=== PATIENT | female | born 1970 | race Caucasian/White ===

== ENCOUNTER 2017-11-07 18:30 | Emergency (ER) | payer BC ==
[~2017-11-07] VITALS: Ht 167.6 cm; Wt 119.3 kg
[~2017-11-07 18:30] MED LIST: HYDROCODONE-AP1 EAC6 PO; IBUPROFEN 400400 M2 PO; LAMICTAL100 MG PO; NAPROSYN500 MG PO; NOHOMEMEDICATIONS; PREDNISONE 10 M10 M1 PO; PROVENTIL HFA6.7 G1 INH; PROZAC20 MG; ROBAXIN 750 MG750 M1 PO; ULTRAM 50MG TAB50 MG PO; ZPAK PO
[2017-11-07] MEDS ORDERED: LATUDA40 MG PO (18:39)
[2017-11-07 19:02] LABS: ABSOLUTE LYMPHOCYTES 1.3 thou/uL (0.8-5.3); ABSOLUTE MONOCYTES 0.3 thou/uL (0.0-1.2); ABSOLUTE NEUTROPHILS 2.2 thou/uL (1.6-8.1); BASOPHILS 0.5 %; EOSINOPHILS 0.2 %; HEMATOCRIT 37.4 % (37.0-47.0); HEMOGLOBIN 12.4 gm/dL (12.0-15.0); LYMPHOCYTES 34.4 %; MCH 27.2 pg (26.0-34.0); MCHC 33.2 g/dL (28.0-37.0); MCV 81.8 fL (80.0-100.0); MONOCYTES 7.3 %; MPV 8.9 fl. (7.2-11.1); NUCLEATED RBCS 0 /100WBC; PLATELET COUNT* 193 thou/uL (150-400); POLYS 57.6 %; RBC 4.57 mil/uL (4.20-5.00); RDW-CV 15.4 % (10.5-14.5); WBC 3.8 thou/uL (4.0-11.0)
[2017-11-07 19:11] LABS: ANION GAP 9 mmol/L (7-16); BUN 10 mg/dL (7-18); CALCIUM 8.3 mg/dL (8.5-10.1); CHLORIDE 103 mmol/L (98-107); CO2 25 mmol/L (21-32); GLUCOSE 330 mg/dL (70-99); POTASSIUM 3.7 mmol/L (3.5-5.1); SODIUM 137 mmol/L (136-145)
[2017-11-07 19:14] LABS: APTT 26.6 Seconds (25.0-31.3); PROTIME 9.5 Seconds (9.20-11.50)
[2017-11-07 19:14] LABS: INFLUENZA A ANTIGEN None Detected (None Detect)
[2017-11-07 19:31] LABS: ALBUMIN 3.2 g/dL (3.4-5.0); ALKALINE PHOSPHATASE 112 U/L (46-116); CK-MB MASS < 0.5 ng/mL (<0.5-3.6); LIPASE 156 U/L (73-393); MAGNESIUM 1.8 mg/dL (1.8-2.4); NT-PRO BRAIN NAT PEPTIDE 125 pg/mL (<300); SGOT 23 U/L (15-37); SGPT 33 U/L (30-65); TOTAL BILIRUBIN 0.4 mg/dL (<0.1-1.0); TOTAL PROTEIN 7.5 g/dL (6.4-8.2); TROPONIN-I LEVEL <0.06 ng/mL (<0.06)
[2017-11-07] MEDS ORDERED: PREDNISONE50 MG PO (20:15)
[2017-11-07] MEDS ORDERED: METFORMIN HCL500 MG PO (20:15)
[2017-11-07] MEDS ORDERED: TAMIFLU75 MG PO (20:16)
[2017-11-07] MEDS ORDERED: ACETAMINOPHEN-1 EAC1 PO (20:19)
[2017-11-07 21:19] VITALS: BP 139/73
--- NOTE | 2017-11-08 12:33 | EKG ---
[place] [address] ELECTROCARDIOGRAM REPORT Name: KRISTINEVANGELISTAEDSON [place] Room: [facility] [place]#: [id number] Admission: 11/07/17 Attend Phys: Discharge: 11/07/17 Date of : 68 Report #: [id number] THIS REPORT FOR: //name// [facility] ED Test Date: 2017-11-07 Test Time: 18:36:51 Pat Name: EDSON ROLDAN Department: Room: Gender: F [employer] Chief: : 1970 Requested By: Jarvis Sandoval Order Number: [id number] MD: Gomez Demarco Measurements Intervals [place] Rate: 91 P: 29 PA: 149 QRS: 22 QRSD: 101 T: 18 QT: 344 QTc: 424 Interpretive Statements Sinus rhythm No previous ECG available for comparison Electronically Signed On 11-08-2017 12:33:35 PROSTHETIC TECHNICIAN by Gomez Demarco [email or web address] <ELECTRONICALLY SIGNED> By: Gomez Demarco MD, [facility] 11/08/17 1233 1836 1836 Gomez Demarco MD, FACC /EPI
[2017-11-08 19:06] LABS: GLYCOHEMOGLOBIN (HGB A1C) 8.5 % (4.8-5.6)
== END 2017-11-07 21:20 | disposition home or self-care (01) ==
LOC: M.ERS 18:30
PROVIDERS: Emergency Medicine; Family Medicine
DX: J10.1 Influenza due to other identified influenza virus with other respiratory manifestations (principal); E11.9 Type 2 diabetes mellitus without complications; F31.9 Bipolar disorder, unspecified

== ENCOUNTER → 2018-05-13 | Outpatient (CLI) | payer BC ==
[~2018-05-13] MED LIST changes: +ACETAMINOPHEN-1 EAC1 PO; +LATUDA40 MG PO; +METFORMIN HCL500 MG PO; +PREDNISONE50 MG PO; +TAMIFLU75 MG PO
== END ==
LOC: M.RAD 10:04
DX: M25.612 Stiffness of left shoulder, not elsewhere classified (principal); M25.512 Pain in left shoulder